=== PATIENT | male | born 1985 | race Hispanic/Latino ===

== ENCOUNTER 2017-12-18 10:36 | Emergency (ER) | payer OTHER ==
[2017-12-18 10:40] VITALS: TEMP 97.6
--- NOTE | 2017-12-18 11:43 | ED PDOC ---
HPI: Chest Pain Time Seen by Provider: 12/18/17 11:10 Chief Complaint (Nursing): Chest Pain Chief Complaint (Provider): chest pain when awakening History Per: Patient History/Exam Limitations: no limitations Onset/Duration Of Symptoms: Days (2 wks), Intermittent Episodes Current Symptoms Are (Timing): Intermittent Episodes Severity: Moderate Quality: Burning Associated Symptoms: Nausea. denies: Dyspnea, Diaphoresis, Syncope Modifying Factors: None Exacerbating Factors: None Alleviating Factors: Rest Additional Complaint(s): 32yo male prior well states for last approximate 2 weeks has developed chest discomfort described as burning radiating to his back, mostly upon awakening in morning. Denies sour taste in mouth, syncope, SOB, fever, cough, bloody or melanontic stool or prior history of similar symptoms. Told in past his cholesterol is mildly elevated but takes no meds. Denies recent long immobilization/car/plane rides or self or family history of blood clots or premature coronary disease. Past Medical History Reviewed: Historical Data, Nursing Documentation, Vital Signs Vital Signs: Last Vital Signs Temp 97.6 F 12/18/17 10:37 Pulse 67 12/18/17 14:16 Resp 16 12/18/17 14:16 BP 123/78 12/18/17 14:16 Pulse Ox 100 12/18/17 14:16 - Medical History PMH: No Chronic Diseases - Family History Family History: States: Unknown Family Hx - Living Arrangements Living Arrangements: With Family - Social History Current smoker - smoking cessation education provided: No Drugs: Denies - Allergies Allergies/Adverse Reactions: Allergies Allergy/AdvReac Type Severity Reaction Status Date / Time No Known Allergies Allergy Verified 12/18/17 10:36 Review of Systems Constitutional: Negative for: Fever, Chills Cardiovascular: Positive for: Chest Pain. Negative for: Palpitations, Orthopnea , Paroxysmal Noc. Dyspnea, Edema, Light Headedness Respiratory: Negative for: Cough, Shortness of Breath Gastrointestinal: Negative for: Vomiting, Abdominal Pain, Diarrhea, Melena Genitourinary Male: Negative for: Dysuria, Hematuria Musculoskeletal: Positive for: Back Pain. Negative for: Neck Pain, Shoulder Pain, Arm Pain Skin: Negative for: Rash, Lesions, Jaundice, Bruising Neurological: Negative for: Weakness, Numbness, Headache, Dizziness Psych: Negative for: Depression Physical Exam - Reviewed Nursing Documentation Reviewed: Yes Vital Signs Reviewed: Yes - Physical Exam Appears: Positive for: Well, Non-toxic, No Acute Distress Head Exam: Positive for: ATRAUMATIC, NORMAL INSPECTION, NORMOCEPHALIC Skin: Positive for: Normal Color, Warm, DRY Eye Exam: Positive for: EOMI, Normal appearance, PERRL ENT: Positive for: Normal ENT Inspection Neck: Positive for: Normal, Painless ROM Cardiovascular/Chest: Positive for: Regular Rate, Rhythm. Negative for: Murmur , Irregularly Irregular Respiratory: Positive for: CNT, Normal Breath Sounds Gastrointestinal/Abdominal: Positive for: Bowel Sounds, Soft, Tenderness (mild epigastric tenderness). Negative for: Guarding, Rebound Back: Positive for: Normal Inspection Extremity: Positive for: Normal ROM. Negative for: Swelling Neurologic/Psych: Positive for: Alert, Oriented. Negative for: Motor/Sensory Deficits - Laboratory Results Result Diagrams: 12/18/17 12:24 12/18/17 12:24 - ECG ECG: Positive for: Interpreted By Me ECG Rhythm: Positive for: Normal ST Segment, Nonspecific Changes Rate: 65 O2 Sat by Pulse Oximetry: 98 Pulse Ox Interpretation: Normal Medical Decision Making Medical Decision Making: workup for atypical chest pain initiated without risk factors labs reviewed and clinically unremarkable except cholesterol which is noted and discussed w patient mild leukopenia butt differential ok DDimer, trop and BNP all within normal limits chem/LFTs unremarkable Accession No. : [id number] Patient Name / ID : STEVEN COOPER / [id number] Exam Date : 12/18/2017 11:31:27 ( Approved ) Study Comment : Sex / Age : M / 32Y Creator : Mahendra Han MD Dictator : Mahendra Han MD Knitter Machine : Manager Stars : Mahendra Han MD Approver2 : Report Date : 12/18/2017 11:59:56 My Comment : HISTORY: Chest pain COMPARISON: No prior. TECHNIQUE: Chest PA and lateral FINDINGS: LUNGS: No active pulmonary disease. PLEURA: No significant pleural effusion identified. No pneumothorax apparent. CARDIOVASCULAR: Normal. OSSEOUS STRUCTURES: No significant abnormalities. VISUALIZED UPPER ABDOMEN: Normal. OTHER FINDINGS: None. IMPRESSION: No active disease. Accession No. : [id number] Patient Name / ID : STEVEN COOPER / [id number] Exam Date : 12/18/2017 11:58:10 ( Approved ) Study Comment : Sex / Age : M / 32Y Creator : Mahendra Han MD Dictator : Mahendra Han MD Knitter Machine : Manager Stars : Mahendra Han MD Approver2 : Report Date : 12/18/2017 12:38:22 My Comment : HISTORY: RUQ and aorta, epigastric pain COMPARISON: None. TECHNIQUE: Sonographic evaluation of the right upper quadrant of the abdomen. FINDINGS: LIVER: Measures 17.1 cm in length. Normal echogenicity of the liver parenchyma. Sub centimeter echogenic structure in the right hepatic lobe. No intrahepatic bile duct dilatation. GALLBLADDER: Unremarkable. COMMON BILE DUCT: Measures 3 mm. No stones. No dilatation. PANCREAS: Unremarkable as visualized. No mass. No ductal dilatation. RIGHT KIDNEY: Measures 9.8 x 4.1 x 5.1 cm in length. Normal echogenicity. No calculus, mass, or hydronephrosis. AORTA: No aneurysmal dilatation. IVC: Unremarkable. OTHER FINDINGS: None . IMPRESSION: No cholelithiasis. Sub centimeter echogenic structure in the right hepatic lobe, likely represents hemangioma. 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 Rec repeat WBC in 2 weeks, possible GI eval and echo as outpatient HEART score 0 WELLS score 0 Does not meet criteria for inpatient hospitalization at this time but requires timely outpatient followup Disposition - Clinical Impression Clinical Impression: Chest pain - Patient ED Disposition Is Patient to be Admitted: No Counseled Patient/Family Regarding: Studies Performed, Diagnosis, Need For Followup, Rx Given - Disposition Referrals: Geo Gotti MD [Staff Provider] - Gonzales Hartley MD [Staff Provider] - Disposition: Routine/Home Disposition Time: 13:45 Condition: STABLE Additional Instructions: Followup with your doctor in 2-3 days for further testing. Return to ER for any new or worsening symptoms. Take medications as directed. Instructions: Chest Pain Forms: [employer] ([employer])
--- NOTE | 2017-12-18 12:01 | RAD ---
HISTORY: Chest pain COMPARISON: No prior. TECHNIQUE: Chest PA and lateral FINDINGS: LUNGS: No active pulmonary disease. PLEURA: No significant pleural effusion identified. No pneumothorax apparent. CARDIOVASCULAR: Normal. OSSEOUS STRUCTURES: No significant abnormalities. VISUALIZED UPPER ABDOMEN: Normal. OTHER FINDINGS: None. IMPRESSION: No active disease.
[2017-12-18 12:35] LABS: BASO % 0.6 % (0.0-2.0); EOS # 0.3 K/uL (0.0-0.7); EOS % 7.2 % (0.0-4.0); HEMOGLOBIN 16.1 g/dL (12.0-18.0); LYMPH # 1.2 K/uL (1.0-4.3); LYMPH % 28.5 % (20.0-40.0); MEAN CELL VOLUME 95.7 fl (80.0-94.0); MEAN CORPUSCULAR HEMOGLOBIN 32.9 pg (27.0-31.0); MEAN CORPUSCULAR HGB CONC 34.3 g/dL (33.0-37.0); MEAN PLATELET VOLUME 8.7 fl (7.2-11.7); MONO # 0.4 K/uL (0.0-0.8); MONO % 9.9 % (0.0-10.0); NEUT # 2.3 K/uL (1.8-7.0); NEUT % 53.8 % (50.0-75.0); NRBC % 0.1 % (0.0-0.0); RBC 4.89 Mil/uL (4.40-5.90); RED CELL DISTRIBUTION WIDTH 12.9 % (11.5-14.5); WHITE BLOOD COUNT 4.2 K/uL (4.8-10.8)
--- NOTE | 2017-12-18 12:40 | US ---
HISTORY: RUQ and aorta, epigastric pain COMPARISON: None. TECHNIQUE: Sonographic evaluation of the right upper quadrant of the abdomen. FINDINGS: LIVER: Measures 17.1 cm in length. Normal echogenicity of the liver parenchyma. Sub centimeter echogenic structure in the right hepatic lobe. No intrahepatic bile duct dilatation. GALLBLADDER: Unremarkable. COMMON BILE DUCT: Measures 3 mm. No stones. No dilatation. PANCREAS: Unremarkable as visualized. No mass. No ductal dilatation. RIGHT KIDNEY: Measures 9.8 x 4.1 x 5.1 cm in length. Normal echogenicity. No calculus, mass, or hydronephrosis. AORTA: No aneurysmal dilatation. IVC: Unremarkable. OTHER FINDINGS: None . IMPRESSION: No cholelithiasis. Sub centimeter echogenic structure in the right hepatic lobe, likely represents hemangioma.
[2017-12-18 12:44] LABS: ALB/GLOB RATIO 1.4 (1.0-2.1); ALBUMIN 4.6 g/dL (3.5-5.0); ALT/SGPT 36 U/L (21-72); AST/SGOT 28 U/L (17-59); BLOOD UREA NITROGEN 15 mg/dl (9-20); CALCIUM 9.7 mg/dL (8.4-10.2); GFR AFRICAN-AMERICAN > 60; GFR NON-AFRICAN AMERICAN > 60; HDL CHOLESTEROL 47 MG/DL (30-70); LIPASE 43 U/L (23-300)
[2017-12-18 12:50] LABS: PARTIAL THROMBOPLASTIN TIME 31.6 Seconds (25.6-37.1); PROTHROMBIN TIME 10.6 Seconds (9.8-13.1)
[2017-12-18 12:55] LABS: LDL CHOLESTEROL 150 mg/dL (0-129)
[2017-12-18 13:19] LABS: B-TYPE NATRIURETIC PEPTIDE 42.4 pg/ml (0-450); TROPONIN I < 0.1200 ng/mL (0.00-0.120)
[2017-12-18 14:17] VITALS: BP 123/78; RESP 16
[2017-12-18 14:22] VITALS: PULSE 65; O2SAT 98
--- NOTE | 2017-12-19 00:12 | CARD ---
APPROVED REPORT EKG Measurement Heart [id number] <Conclusion> Normal sinus rhythm with sinus arrhythmia Normal ECG
== END 2017-12-18 14:17 | disposition home or self-care (01) ==
LOC: H.ER 10:36
DX: R07.89 Other chest pain (principal)